=== PATIENT | male | born 1945 | race African-American/Black ===

== ENCOUNTER 2016-11-04 08:53 | Day surgery (SDC) | payer MEDICARE, OTHER ==
--- NOTE | ~2016-11-04 | EGD ---
EGD REPORT [facility] [address] [id number] NAME: TOBI MCLEAN : [birth year] STATUS : REG [facility]#: [id number] AGE: 71 ADM/REG DATE : 11/04/16 MR#: [id number] REPORT SERV DATE: 11/04/16 DICTATED BY: DEB RUIZ DATE: 11/04/16 REPORT STATUS : Draft TRANSCRIBED BY: [employer] DATE: 11/04/16 [facility] Patient Name: Tobi Mclean Date of : 1945 Attending MD: DEB RUIZ MD Procedure Date No Time: 11/04/2016 Procedure: Upper GI endoscopy Indications: Weight loss Referring MD: CRYS HELMS MD, [facility] Medicines: See the Anesthesia note for documentation of the administered medications Complications: No immediate complications. Procedure: Pre-Anesthesia Assessment: - ASA Grade Assessment: III - A patient with severe systemic disease. After obtaining informed consent, the endoscope was passed under direct vision. Throughout the procedure, the patient's blood pressure, pulse, and oxygen saturations were monitored continuously. The GIF H190 [id number] was introduced through the mouth, and advanced to the second part of duodenum. The upper GI endoscopy was accomplished without difficulty. The patient tolerated the procedure well. Findings: The examined duodenum was normal. Mild inflammation was found in the gastric antrum. Biopsies were taken with a cold forceps for histology. The cardia and gastric fundus were normal on retroflexion. A small hiatus hernia was present. Impression: - Normal examined duodenum. - Gastritis. Biopsied. - Hiatus hernia. Recommendation: - Patient has a contact number available for emergencies. The signs and symptoms of potential delayed complications were discussed with the patient. Return to normal activities tomorrow. Written discharge instructions were provided to the patient. - Regular diet. - Continue present medications. - FOR YOUR BIOPSY RESULTS: Please go to [email or web address] and register to receive your results via the portal. Your biopsy results will be EGD REPORT [address] [place]. [address] NAME: TOBI MCLEAN : [birth year] STATUS : REG [facility] [place] PAT#: [id number] AGE: 71 ADM/REG DATE : 11/04/16 MR#: [id number] REPORT SERV DATE: 11/04/16 DICTATED BY: DEB RUIZ DATE: 11/04/16 REPORT STATUS : Draft TRANSCRIBED BY: [employer] DATE: 11/04/16 posted there in about 7 to 10 days. IF you do not see result in 10 days, call office. Procedure Code(s): --- Professional --- 82510, Esophagogastroduodenoscopy, flexible, transoral; with biopsy, single or multiple Diagnosis Code(s): --- Professional --- K29.70, Gastritis, unspecified, without bleeding K44.9, Diaphragmatic hernia without obstruction or gangrene R63.4, Abnormal weight loss CPT copyright 2013 [employer]. All rights reserved. The codes documented in this report are preliminary and upon pitch gatherer review may be revised to meet current compliance requirements. Deb Ruiz MD DEB RUIZ MD 11/04/2016 9:48 AM This report has been signed electronically. Number of Addenda: 0 Note Initiated On: 11/04/2016 9:38 AM Scope Withdrawal Time 0 hours 0 minutes 0 seconds [id number] [place] [address]
--- NOTE | ~2016-11-04 | EGD ---
EGD REPORT [facility] [address] [address] NAME: TOBI MCLEAN : [birth year] STATUS : REG [facility]#: [id number] AGE: 71 ADM/REG DATE : 11/04/16 MR#: [id number] REPORT SERV DATE: 11/04/16 DICTATED BY: DEB RUIZ DATE: 11/04/16 REPORT STATUS : Draft [facility] DATE: 11/04/16 [facility] Patient Name: Tobi Mclean Date of : 1945 Attending MD: DEB RUIZ MD Procedure Date No Time: 11/04/2016 Procedure: Colonoscopy Indications: High risk colon cancer surveillance: Personal history of colon cancer, (Last colon 07/2014) Referring MD: CRYS Breen MD Medicines: See the Anesthesia note for documentation of the administered medications Complications: No immediate complications. Procedure: Pre-Anesthesia Assessment: - ASA Grade Assessment: III - A patient with severe systemic disease. After I obtained informed consent, the scope was passed under direct vision. Throughout the procedure, the patient's blood pressure, pulse, and oxygen saturations were monitored continuously. The PCF [id number] was introduced through the anus and advanced to the terminal ileum, with identification of the appendiceal orifice and IC valve. The colonoscopy was performed without difficulty. The patient tolerated the procedure well. The quality of the bowel preparation was adequate. Findings: The perianal and digital rectal examinations were normal. Internal hemorrhoids were found during retroflexion and were small. 1.5 - 2.0 cm flat polyp at cecal inlet, The polyp was removed with a piecemeal technique using a hot snare. Resection and retrieval were complete. One hemostatic clip was successfully placed. This was done to prevent bleeding. A sessile polyp was found in the rectum. The polyp was small in size. The polyp was removed with a cold biopsy forceps. Resection and retrieval were complete. Normal colocolo anastomosis Impression: - Internal hemorrhoids. - 1.5 - 2.0 cm flat polyp at cecal inlet - One small polyp in the rectum. Resected and retrieved. - Normal colocolo anastomosis Recommendation: - Patient has a contact number available for emergencies. The signs and symptoms of potential delayed EGD REPORT [address] [place]. [address] NAME: TOBI MCLEAN : [birth year] STATUS : REG [facility]#: [id number] AGE: 71 ADM/REG DATE : 11/04/16 MR#: [id number] REPORT SERV DATE: 11/04/16 DICTATED BY: DEB RUIZ DATE: 11/04/16 REPORT STATUS : Draft TRANSCRIBED BY: [employer] DATE: 11/04/16 complications were discussed with the patient. Return to normal activities tomorrow. Written discharge instructions were provided to the patient. - Regular diet. - Continue present medications. - Repeat colonoscopy in 6 months for surveillance after piecemeal polypectomy. - FOR YOUR BIOPSY RESULTS: Please go to [email or web address] and register to receive your results via the portal. Your biopsy results will be posted there in about 7 to 10 days. IF you do not see result in 10 days, call office. Procedure Code(s): --- Professional --- 35671, Colonoscopy, flexible, proximal to splenic flexure; with removal of tumor(s), polyp(s), or other lesion(s) by snare technique 62246, 59, Colonoscopy, flexible, proximal to splenic flexure; with biopsy, single or multiple Diagnosis Code(s): --- Professional --- K64.8, Other hemorrhoids K62.1, Rectal polyp Z85.038, Personal history of other malignant neoplasm of large intestine CPT copyright 2013 [employer]. All rights reserved. The codes documented in this report are preliminary and upon cpc coder review may be revised to meet current compliance requirements. Deb Ruiz MD DEB RUIZ MD 11/04/2016 10:13 AM This report has been signed electronically. Number of Addenda: 0 Note Initiated On: 11/04/2016 9:36 AM Scope Withdrawal Time 0 hours 16 minutes 43 seconds [id number] [place] [id number]
[~2016-11-04 08:53] MED LIST: ALEVE220 MG PO; ALIGN4 MG PO; ASAB PO; BETAPACE80 PO; COREG12 PO; ENDOCET1 TAB PO; FERRETTS325 MG PO; FERROUS SULF325 M1 PO; FESO4 PO; FLOMAX4 PO; INDE60 PO; INDE80 PO; IRON325 MG PO; ISOSORB DIN30 MG PO; LORT7 PO; LORTAB 5 PO; METHIMAZOLE5 MG OR; METHIMAZOLE5 MG PO; MIRALAXPKT PO; NORCO1 TA1 PO; NORCO1 TA2 PO; PRILOSEC OTC20 MG PO; PROTONIX PO
== END 2016-11-04 23:59 | disposition home or self-care (01) ==
LOC: DMU 08:53
PROVIDERS: Internal Medicine Gastroenterology
PROC: 0DB68ZX Excision of Stomach, Via Natural or Artificial Opening Endoscopic, Diagnostic (ICD-10-PCS; principal; 2016-11-04 10:00)
PROC: 0DBH8ZX Excision of Cecum, Via Natural or Artificial Opening Endoscopic, Diagnostic (ICD-10-PCS; 2016-11-04 10:00)
PROC: 0DBP8ZX Excision of Rectum, Via Natural or Artificial Opening Endoscopic, Diagnostic (ICD-10-PCS; 2016-11-04 10:00)
DX: Z12.11 Encounter for screening for malignant neoplasm of colon (principal); D12.0 Benign neoplasm of cecum; K62.1 Rectal polyp; K64.8 Other hemorrhoids; K44.9 Diaphragmatic hernia without obstruction or gangrene; I48.91 Unspecified atrial fibrillation; I50.9 Heart failure, unspecified; E03.9 Hypothyroidism, unspecified; Z85.038 Personal history of other malignant neoplasm of large intestine; Z90.49 Acquired absence of other specified parts of digestive tract; Z98.890 Other specified postprocedural states; Z87.442 Personal history of urinary calculi
CPT/HCPCS: 88305; J2370